=== PATIENT | female | born 1945 | race Caucasian/White ===

== ENCOUNTER 2022-09-10 12:57 | Emergency (ER) | payer BC, MEDICAID ==
[~2022-09-10] VITALS: Ht 154.9 cm; Wt 56.2 kg
[~2022-09-10 12:57] MED LIST: ASPI-1129 PO; CEPH-588 PO; LISI-486 PO
[2022-09-10 13:36] VITALS: BP 156/68
[2022-09-10 15:09] LABS: BASOPHILS # (AUTO) 0.1 K/uL (0.00-0.22); BASOPHILS % (AUTO) 1.9 % (0.0-2.0); EOSINOPHILS # (AUTO) 0.3 K/uL (0-0.4); EOSINOPHILS % (AUTO) 4.2 % (0.0-4.0); HEMATOCRIT 35.8 % (36-48); LYMPHOCYTES % (AUTO) 30.9 % (20.5-51.1); MEAN CORPUSCULAR HEMOGLOBIN 29 pg (27-31); MEAN CORPUSCULAR HGB CONC 34 g/dL (33-37); MEAN CORPUSCULAR VOLUME 85.7 fL (80-94); MONOCYTES # (AUTO) 0.4 K/uL (0.8-1.0); MONOCYTES % (AUTO) 5.5 % (1.7-9.3); NEUTROPHILS # (AUTO) 3.8 K/uL (1.8-7.7); NEUTROPHILS % (AUTO) 57.5 % (42.2-75.2); PLATELET COUNT (AUTO) 326 K/uL (140-450); RED BLOOD CELL COUNT(AUTO) 4.17 MIL/uL (4.20-5.40); RED CELL DISTRIBUTION WIDTH 14.8 % (11.6-13.7); WHITE BLOOD COUNT (AUTO) 6.6 K/uL (4.8-10.8)
[2022-09-10 15:29] LABS: ALBUMIN 3.6 g/dL (3.4-5.0); ANION GAP 12.4 (8-16); ASPARTATE AMINOTRANSFERASE 21 U/L (15-37); CARBON DIOXIDE 27.1 mmol/L (21-32); CHLORIDE 105 mmol/L (98-107); CREATININE 0.5 mg/dL (0.6-1.3); GLUCOSE 135 mg/dL (74-106); POTASSIUM 3.5 mmol/L (3.5-5.1); SODIUM SERUM 141 mmol/L (136-145); TOTAL BILIRUBIN 0.3 mg/dL (0.0-1.0); UREA NITROGEN, BLOOD 23 mg/dL (7-18)
[2022-09-10 15:44] LABS: PROTHROMBIN TIME 10.9 secs (10.8-13.4)
--- NOTE | 2022-09-10 16:42 | NUR ---
BLOOD SUGAR TAKEN, GLUCOSE 124MG/DL
--- NOTE | 2022-09-10 16:55 | NUR ---
PT TAKEN TO CT IN WHEELCHAIR WITH RADIOLOGIST
--- NOTE | 2022-09-10 19:26 | NUR ---
Pt report given to Jose RANDALL. Transfer of care at this time.
--- NOTE | 2022-09-10 19:30 | NUR ---
pt blood sugar was ched and it was 103. Md notified.
--- NOTE | 2022-09-10 19:45 | NUR ---
SON AT THE BEDSIDE
--- NOTE | 2022-09-10 19:50 | NUR ---
SON LETTING NURSE KNOW THAT HE WANTED THE MOTHER NOT TO STAY
[2022-09-10 20:17] VITALS: BP 140/65
--- NOTE | 2022-09-10 20:42 | NUR ---
Patient discharged with v/s stable. Written and verbal after care instructions given and explained. Patient verbalized understanding. Wheel Chair Assisted with steady gait. All questions addressed prior to discharge. Advised to follow up with PMD. PRT LEFT WITH HER BELONIGINGS
== END 2022-09-10 20:42 | disposition home or self-care (01) ==
LOC: MED 12:57
DX: R60.0 Localized edema (principal); E11.9 Type 2 diabetes mellitus without complications; I10 Essential (primary) hypertension; Z86.73 Personal history of transient ischemic attack (TIA), and cerebral infarction without residual deficits; Z79.4 Long term (current) use of insulin; Z79.899 Other long term (current) drug therapy
CPT/HCPCS: 36415; 73706; 80053; 85025; 85610; 85730; 93971; 99284; Q0092; Q9967